=== PATIENT | female | born 1995 | race Caucasian/White ===

== ENCOUNTER 2017-04-27 17:43 | Emergency (ER) | payer OTHER ==
[2017-04-27 17:48] VITALS: BP 126/86
[2017-04-27] MEDS ORDERED: predniSONE 20 MG TABLET PO STA (18:17)
[2017-04-27] MEDS ORDERED: HYDROcod/ACETAM 5/325 MG TABLET PO STA (18:17)
--- NOTE | 2017-04-27 18:19 | ED Physician Documentation ---
PD HPI BACK INJURY - Stated complaint Stated Complaint: BACK PX - History obtained from History obtained from: Patient - History of Present Illness Location: Other (She is active duty [employer]. 6 months ago at work she was pushing something and it jerked and she felt 2 pops in her back and had gradual onset severe left-sided back pain and now has occasional numbness over the anterior left thigh without saddle anesthesia or fevers. Pain is worse than normal today. Despite Motrin.) Review of Systems Constitutional: denies: Fever, Chills GI: denies: Abdominal Pain, Nausea, Vomiting : denies: Now [facility] PAST MEDICAL HISTORY - Past Medical History Past Medical History: No - Past Surgical History Past Surgical History: Yes - Present Medications Home Medications: Ambulatory Orders Medication Instructions Recorded Confirmed HYDROcod/ACETAM 5/325 [[place] 5/325] 1 - 2 ea PO Q6H PRN #15 tablet 04/27/17 predniSONE [Deltasone] 20 mg PO [id number] #21 tab 04/27/17 - Allergies Allergies/Adverse Reactions: Allergies Allergy/AdvReac Type Severity Reaction Status Date / Time No Known Drug Allergies Allergy Verified 04/27/17 17:48 - Social History Does the pt smoke?: No Smoking Status: Never smoker Does the pt drink ETOH?: No Does the pt have substance abuse?: No - Immunizations Immunizations are current?: Yes - POLST Patient has POLST: No PD ED PE NORMAL - Vitals Vital signs reviewed: Yes - General General: Alert and oriented X 3, No acute distress - Abdomen Abdomen: Soft, Non tender - Back Back: No CVA TTP, No spinal TTP - Extremities Extremities: Other (Over the anterior left thigh she has diminished "80%" sensation, sensation in the calves on both sides is normal. L4 reflexes are normal and symmetric but she has a diminished L5 reflex on the left.) - Neuro Neuro: Alert and oriented X 3, Normal speech - Psych Psych: Normal mood, Normal affect Results - Vitals Vitals: Vital Signs - 24 hr 04/27/17 17:46 Temperature 36.7 C Heart Rate 95 Respiratory 16 Rate Blood Pressure 126/86 H O2 Saturation 100 Oxygen O2 Source Room air PD MEDICAL DECISION MAKING - ED course ED course: The [facility] prescription monitoring program was queried with regard to this patient. No concerning findings were found. The patient and family were counseled as to the diagnosis and need for follow- up. I counseled the patient with regard to signs and symptoms that would necessitate an urgent reevaluation in the emergency department. They understand they are welcome to return at any time if worse or if not improving as expected. This document was made in part using voice recognition software. While efforts are made to proofread this documents, sound alike and grammatical errors may occur. Departure - Departure Disposition: 01 Home, Self Care Clinical Impression: Lumbosacral radiculopathy at L5 Condition: Good Record reviewed to determine appropriate education?: Yes Instructions: ED Sciatica Prescriptions: HYDROcod/ACETAM 5/325 [[place] 5/325] 1 - 2 ea PO Q6H PRN #15 tablet PRN Reason: Pain predniSONE [Deltasone] 20 mg PO [id number] #21 tab Comments: Call your doctor to arrange a follow-up appointment, make the next available appointment. In the interim, return anytime if worse or if new symptoms develop. Your blood pressure was elevated today on check into the emergency department. This does not mean that you have hypertension, it is a common phenomenon to come to the emergency department and have elevated blood pressure. I recommend that she see your primary care physician within the week to have it rechecked when you are feeling better. Do not drink or drive while taking narcotic pain medication. Note that many narcotic pain relievers also contain Tylenol/acetaminophen. Please ensure that your total dose of acetaminophen from all sources does not exceed 3 g (3000 mg) per day. You may get constipated while on this medication. Take a stool softener such as Colace twice a day while you are on it. Also add an [id number]-hut-dniylzo laxative such as senna or MiraLAX on any day that you do not have a bowel movement. If you received a narcotic pain medication or sedative while in the emergency department, do not drive for the next 24 hours.
[2017-04-27] MEDS ORDERED: predniSONE 20 MG TABLET ONE (18:25)
[2017-04-27] MEDS ORDERED: HYDROcod/ACETAM 5/325 MG TABLET ONE (18:26)
== END 2017-04-27 18:26 | disposition home or self-care (01) ==
LOC: ED 17:43
DX: M54.16 Radiculopathy, lumbar region (principal); R03.0 Elevated blood-pressure reading, without diagnosis of hypertension
CPT/HCPCS: 99283; A9270; J7512